=== PATIENT | female | born 1975 | race Caucasian/White ===

== ENCOUNTER → 2024-10-01 | Outpatient (CLI) | payer MEDICAID, SELFPAY ==
--- NOTE | 2024-10-01 | XR_ITS ---
Examination: Bilateral knees 2 views Right lateral knee left lateral knee 2 views Bilateral axial knees single view TECHNIQUE: Bilateral AP knees standing single view, bilateral PA knees standing single view flexion Standing right lateral knee left lateral knee 2 views Bilateral axial knees single view total 5 views Exam date and time: 22,025 1205 hours INDICATIONS: Bilateral knee pain several years. FINDINGS: Moderate osteopenia Moderate narrowing medial joint spaces Moderate narrowing patellofemoral joints No fractures IMPRESSION: Moderate narrowing medial joint spaces Moderate narrowing patellofemoral joints
== END | disposition home or self-care (01) ==
LOC: CDIM 11:29
PROVIDERS: PCP Student in an Organized Health Care Education/Training Program; Referring Provider Orthopaedic Surgery Adult Reconstructive Orthopaedic Surgery; Visit Provider Orthopaedic Surgery Adult Reconstructive Orthopaedic Surgery
DX: M25.862 Other specified joint disorders, left knee (principal); M25.861 Other specified joint disorders, right knee
CPT/HCPCS: 73564

== ENCOUNTER 2024-11-02 10:41 | Outpatient (AMB) | payer MEDICAID, SELFPAY ==
[2024-11-02 11:00] VITALS: BP 146/95; PULSE 68; RESP 18; TEMP 36.6; O2SAT 97; BMI 31.2
--- NOTE | 2024-11-02 11:00 | PD.ORTHCLVIS ---
Vital signs 11/02/24 11:00 Height 1.7 m Height Method Stated Weight 90.35 kg Weight Measurement Method Standing Scale BMI 31.2 BP 146/95 H Blood Pressure Source Automatic Cuff Blood Pressure Location Left Upper Arm Position Sitting Respiration 18 Pulse 68 Pulse Source Monitor Temp 97.8 F Temp Source Temporal Artery Scan Pulse Oximetry (%) 97 Oxygen Delivery Method Room Air Med/Allergies Allergies & Medications Allergies diphenhydramine (From Benadryl) Allergy (Verified 11/02/24 11:01) erythromycin base Allergy (Verified 11/02/24 11:01) gabapentin Allergy (Verified 11/02/24 11:01) Medication Reconciliation No Known Home Medications 11/25/23 [History Confirmed 11/02/24] Exam Exam Patient is in no acute distress and is cooperative with the examination today. Breathing is nonlabored. In no respiratory distress. Patient has no paraspinal tenderness. Spinal deformity cannot be appreciated. The gait of the patient is nonantalgic Bilateral extremities were evaluated and demonstrates sensation intact to light touch. Palpable pedal pulses are present. No significant edema is present. Bilateral knees were examined and the patient has full strength and range of motion.. The left hip was examined. Patient was able to flex to 90 degrees, adduct to 30 degrees, abduct to 40 degrees, internally rotate to 20 degrees, and externally rotate to 20 degrees. Patient has a negative logroll. Stinchfield is negative. The patient is nontender diffusely to touch. The right hip was examined. Patient was able to flex to 90 degrees, adduct to 30 degrees, abduct to 40 degrees, internally rotate to 20 degrees, and externally rotate to 20 degrees. Patient has a negative logroll. The stinchfield is negative. She is tender to palpation over the greater trochanter Right knee is tender to palpation medially as well as the left knee. Range of motion 0 to 100 degrees. She is tender palpation medially. Shoulder range of motion is full. There is impingement and a negative Neer sign bilaterally. 5 out of 5 supraspinatus strength Assessment and Plan Problem List (1) Shoulder pain: Status: Acute Plan: Patient is a 48-year-old female with right shoulder pain. She has done well with conservative treatment For her trochanteric bursitis. She has done well with subacromial injections and would like bilateral ones today. It has been over a year since I last saw her A 21-gauge needle was inserted into the subacromial space through a posterior portal bilaterally. A sterile prep was applied before insertion needle. 5 cc of 1% lidocaine and 1 cc of Kenalog was inserted to each shoulder without resistance. The patient tolerated procedure well (2) Bilateral primary osteoarthritis of knee: Status: Acute Plan: Patient has mild arthritis of her knees and has trochanteric bursitis. She would like to come back for bilateral trochanteric bursitis injections as well (3) Trochanteric bursitis, right hip: Status: Acute Office Procedures GNS Level of Care Nursing/Assessment Patient Status: Established Patient Nursing Assessment/Reassesment: Medication Reconciliation, Update PMH in EMR and Vital Signs Coordination of Care: Complex Care and Chronic Disease 1-5, Consent,records obtained, informed consent, Education Simp Pt/Fam, Results/Orders obtained and Staff clarify orders Established Patient Charge Established Patient Point Assignment: 90 Established Patient Point Charge: EP Level 3 (80-115) Surgical Proc/IM SQ injection Major Surgical Procedure: Yes (SHOULDER INJECTIONS ) Medication Given Medication Given Medication Given: Yes Documented Dose Given: 8 Route: Infiitration Medication Given Medication Given Medication Given: Yes Documented Dose Given: 2 Route: Infiitration Office Meds Xylocaine 10 mg/mL (1 %) injection solution Performing Provider: Ervin Hernandez MD Performing Location: [facility] Administered by: Ervin Hernandez MD on 11/02/24 11:14 Dose Route Admin Location Dispensed Lot Number Expiration Date [facility] Track Car Operator 40 mL Infiltration 40 mL [id number] 12/06/27 44074-303-98 [facility] triamcinolone acetonide 40 mg/mL suspension for injection Performing Provider: Ervin Hernandez MD Performing Location: [facility] Administered by: Ervin Hernandez MD on 11/02/24 11:14 Dose Route Admin Location Dispensed Lot Number Expiration Date [facility] Track Car Operator 80 mg intra-articular 2 mL [id number] 06/06/26 5758-6040-94 MICHAEL PARENTERAL MA Intake Visit Data Collection New Patient or Established: Established Patient (seen at [facility] within 3 years) Reason for Visit:: 1 YR FU BILAT HIP PAIN/BILAT KNEE XRAY RESULT Seen by Clinical Staff ONLY (RN/MA): No Circulation Clerk Required: No PCP or OBGYN visit in last 3 months: Yes Hx Now: No Do You Feel Safe at Home: Yes Authorities Contacted: N/A Questionairres Past Medical History Past Medical History Have you ever been diagnosed with any of the following: Respiratory Problems Smoking: Yes Smoking Cessation Counseling: Yes Smoking Exposure: No Tobacco Use: Yes Subjective Visit Visit for: follow up visit, hip (BILAT HIP PAIN ) and knee (BILAT KNEE PAIN ) Immunization / Flu Flu Vaccine in the Last 12 Months: No Flu Vaccine Exclusion Criteria: Refused by Patient History of Present Illness Chief complaint: bilateral shoulder pain Patient has a history of subacromial bursitis as well as trochanteric bursitis. She would like to get injections of her shoulder today of both as she is having significant shoulder pain and the injections are the only thing that is working. I last saw her a year ago and she reports that it has been working for this long Personal History Red flag PMH: none Pain Pain level (0-10): 7 Pain duration: 3 MONTHS Pain location: groin and anterior Pain quality: aching, burning and tingling Pain timing: increases with activity Associated signs & symptoms: none Ambulatory data Ambulatory device: none Walking distance (blocks): 0 Walking distance (minutes): 1 Treatments Number of previous injections: 5 (HIP INECTIONS ) Improvement with previous injections: Yes Number of Physical Therapy sessions: 0 Improvement with NSAIDS: n/a Review of Systems Review of Systems: All systems negative unless otherwise noted in HPI.
== END 2024-11-02 11:24 | disposition home or self-care (01) ==
LOC: HODSRG 10:41
PROVIDERS: PCP Student in an Organized Health Care Education/Training Program; Referring Provider Student in an Organized Health Care Education/Training Program; Supervising Provider Orthopaedic Surgery Adult Reconstructive Orthopaedic Surgery; Visit Provider Orthopaedic Surgery Adult Reconstructive Orthopaedic Surgery
DX: M25.511 Pain in right shoulder (principal); M17.0 Bilateral primary osteoarthritis of knee; M70.61 Trochanteric bursitis, right hip
CPT/HCPCS: 20610; 99213; J3301; J3490; G0463

== ENCOUNTER 2024-11-23 13:00 | Outpatient (AMB) | payer MEDICAID, SELFPAY ==
[2024-11-23 13:21] VITALS: BP 143/88; PULSE 77; RESP 18; TEMP 36.6; O2SAT 94; BMI 30.2
--- NOTE | 2024-11-23 13:21 | PD.ORTHCLVIS ---
Vital signs 11/23/24 13:21 Height 1.7 m Height Method Stated Weight 87.203 kg Weight Measurement Method Standing Scale BMI 30.2 BP 143/88 H Blood Pressure Source Automatic Cuff Blood Pressure Location Right Upper Arm Position Sitting Respiration 18 Pulse 77 Pulse Source Monitor Temp 97.8 F Temp Source Temporal Artery Scan Pulse Oximetry (%) 94 L Oxygen Delivery Method Room Air Med/Allergies Allergies & Medications Allergies diphenhydramine (From Benadryl) Allergy (Verified 11/23/24 13:22) erythromycin base Allergy (Verified 11/23/24 13:22) gabapentin Allergy (Verified 11/23/24 13:22) Medication Reconciliation No Known Home Medications 11/25/23 [History Confirmed 11/23/24] Exam Exam Patient is in no acute distress and is cooperative with the examination today. Breathing is nonlabored. In no respiratory distress. Patient has no paraspinal tenderness. Spinal deformity cannot be appreciated. The gait of the patient is nonantalgic Bilateral extremities were evaluated and demonstrates sensation intact to light touch. Palpable pedal pulses are present. No significant edema is present. Bilateral knees were examined and the patient has full strength and range of motion.. The left hip was examined. Patient was able to flex to 90 degrees, adduct to 30 degrees, abduct to 40 degrees, internally rotate to 20 degrees, and externally rotate to 20 degrees. Patient has a negative logroll. Stinchfield is negative. The patient is nontender diffusely to touch. The right hip was examined. Patient was able to flex to 90 degrees, adduct to 30 degrees, abduct to 40 degrees, internally rotate to 20 degrees, and externally rotate to 20 degrees. Patient has a negative logroll. The stinchfield is negative. She is tender to palpation over the greater trochanter Right knee is tender to palpation medially as well as the left knee. Range of motion 0 to 100 degrees. She is tender palpation medially. Shoulder range of motion is full. There is impingement and a negative Neer sign bilaterally. 5 out of 5 supraspinatus strength Assessment and Plan Problem List (1) Shoulder pain: Status: Acute Plan: Patient is a 48-year-old female with right shoulder pain. She has done well with conservative treatment For her trochanteric bursitis. She would like a right hip bursa as well as a right knee cortisone injection today (2) Bilateral primary osteoarthritis of knee: Status: Acute Plan: Recommend knee cortisone injection as patient would like to proceed with conservative treatment at this time. The risks and benefits of the procedure were reviewed with the patient and patient gave verbal consent to continue with the procedure. Procedure: performed by Dr. Hernandez Using sterile technique the Right knee was thoroughly prepped with alcohol, and approximately 1 cc of Kenalog 40 mg/mL and 4 cc of 1% lidocaine was injected without resistance into the medial tibial femoral joint space. The patient tolerated the procedure. (3) Trochanteric bursitis, right hip: Status: Acute Plan: Recommend hip bursa cortisone injection as patient would like to proceed with conservative treatment at this time. The risks and benefits of the procedure were reviewed with the patient and patient gave verbal consent to continue with the procedure. Procedure: performed by Dr. Hernandez Using sterile technique the right hip bursa was thoroughly prepped with alcohol prep, and approximately 1 cc of Kenalog 40 mg/mL and 4 cc of 1% Lidocaine was injected without resistance. The patient tolerated the procedure well. Office Procedures GNS Level of Care Nursing/Assessment Patient Status: Established Patient Nursing Assessment/Reassesment: Medication Reconciliation, Update PMH in EMR and Vital Signs Coordination of Care: Complex Care and Chronic Disease 1-5, Consent,records obtained, informed consent, Education Simp Pt/Fam, Results/Orders obtained and Staff clarify orders Established Patient Charge Established Patient Point Assignment: 90 Established Patient Point Charge: EP Level 3 (80-115) Medication Given Medication Given Medication Given: Yes Documented Dose Given: 8 Route: Infiitration Medication Given Medication Given Medication Given: Yes Documented Dose Given: 2 Route: Infiitration Office Meds Xylocaine 10 mg/mL (1 %) injection solution Performing Provider: Ervin Hernandez MD Performing Location: [facility] Administered by: Ervin Hernandez MD on 11/23/24 13:39 Dose Route Admin Location Dispensed Lot Number Expiration Date [facility] [employer] Equipment Setter 40 mL Infiltration 40 mL [id number] 04/05/28 52203-841-19 [facility] triamcinolone acetonide 40 mg/mL suspension for injection Performing Provider: Ervin Hernandez MD Performing Location: [facility] Administered by: Ervin Hernandez MD on 11/23/24 13:39 Dose Route Admin Location Dispensed Lot Number Expiration Date [facility] [employer] Equipment Setter 80 mg intra-articular 2 mL [id number] 07/05/26 1294-1031-42 TEVA PARENTERAL MA Intake Visit Data Collection New Patient or Established: Established Patient (seen at [facility] within 3 years) Reason for Visit:: RIGHT HIP/RIGHT KNEE PAIN Seen by Clinical Staff ONLY (RN/MA): No Facilities Specialist Required: No PCP or OBGYN visit in last 3 months: Yes Hx Now: No Do You Feel Safe at Home: Yes Authorities Contacted: N/A Questionairres Past Medical History Past Medical History Have you ever been diagnosed with any of the following: Respiratory Problems Smoking: Yes Smoking Cessation Counseling: Yes Smoking Exposure: No Tobacco Use: Yes Subjective Visit Visit for: follow up visit, hip (RIGHT HIP ) and knee (RIGHT KNEE ) Immunization / Flu Flu Vaccine in the Last 12 Months: No Flu Vaccine Exclusion Criteria: Refused by Patient History of Present Illness Chief complaint: bilateral shoulder pain Patient has a history of subacromial bursitis as well as trochanteric bursitis. She did well for shoulder injections. She would like a hip bursa injection today as well as a right knee injection today. Personal History Red flag PMH: none Pain Pain level (0-10): 7 Pain duration: SEVERAL MONTHS Pain location: groin and anterior Pain quality: aching, burning and tingling Pain timing: night and increases with activity Associated signs & symptoms: none Ambulatory data Ambulatory device: none Walking distance (blocks): 0 Walking distance (minutes): 5 Treatments Number of previous injections: 2 Improvement with previous injections: Yes Number of Physical Therapy sessions: 4 Improvement with PT: No Improvement with NSAIDS: n/a Review of Systems Review of Systems: All systems negative unless otherwise noted in HPI.
== END 2024-11-23 13:38 | disposition home or self-care (01) ==
LOC: HODSRG 13:00
PROVIDERS: PCP Student in an Organized Health Care Education/Training Program; Referring Provider Student in an Organized Health Care Education/Training Program; Supervising Provider Orthopaedic Surgery Adult Reconstructive Orthopaedic Surgery; Visit Provider Orthopaedic Surgery Adult Reconstructive Orthopaedic Surgery
DX: M17.0 Bilateral primary osteoarthritis of knee (principal); M70.61 Trochanteric bursitis, right hip; M25.511 Pain in right shoulder
CPT/HCPCS: 20610; 99213; J3301; J3490; G0463

== ENCOUNTER 2025-04-01 09:03 | Outpatient (AMB) | payer MEDICAID, SELFPAY ==
--- NOTE | 2025-04-01 09:33 | PD.ORTHCLVIS ---
Vital signs 04/01/25 09:40 Height 1.7 m Height Method Stated Weight 86.806 kg Weight Measurement Method Standing Scale BMI 30.0 BP 143/89 H Blood Pressure Source Automatic Cuff Blood Pressure Location Right Upper Arm Position Sitting Respiration 16 Pulse 69 Pulse Source Monitor Temp 96.7 F L Temp Source Temporal Artery Scan Pulse Oximetry (%) 97 Oxygen Delivery Method Room Air Med/Allergies Allergies & Medications Allergies diphenhydramine (From Benadryl) Allergy (Verified 04/01/25 09:40) erythromycin base Allergy (Verified 04/01/25 09:40) gabapentin Allergy (Verified 04/01/25 09:40) Medication Reconciliation No Known Home Medications 11/25/23 [History Confirmed 04/01/25] Exam Exam Patient is in no acute distress and is cooperative with the examination today. Breathing is nonlabored. In no respiratory distress. Patient has no paraspinal tenderness. Spinal deformity cannot be appreciated. The gait of the patient is nonantalgic Bilateral extremities were evaluated and demonstrates sensation intact to light touch. Palpable pedal pulses are present. No significant edema is present. Bilateral knees were examined and the patient has full strength and range of motion.. The left hip was examined. Patient was able to flex to 90 degrees, adduct to 30 degrees, abduct to 40 degrees, internally rotate to 20 degrees, and externally rotate to 20 degrees. Patient has a negative logroll. Stinchfield is negative. The patient is nontender diffusely to touch. The right hip was examined. Patient was able to flex to 90 degrees, adduct to 30 degrees, abduct to 40 degrees, internally rotate to 20 degrees, and externally rotate to 20 degrees. Patient has a negative logroll. The stinchfield is negative. She is tender to palpation over the greater trochanter Right knee is tender to palpation medially as well as the left knee. Range of motion 0 to 100 degrees. She is tender palpation medially. Shoulder range of motion is full. There is impingement and a negative Neer sign bilaterally. 5 out of 5 supraspinatus strength Assessment and Plan Problem List (1) Shoulder pain: Status: Acute Plan: Patient is a 49-year-old female with bilateral shoulder pain bilateral hip bursitis and bilateral knee pain. She is very tender in these spots. I have a very high suspicion for fibromyalgia as she has pain in several locations that is very common with fibromyalgia. I do think she would benefit from a pain management doctor as the majority of her problems are nonsurgical. Her arthritis is mild as well as her subacromial bursitis and hip bursitis. She reports that the bilateral shoulders are the joints that are bothering her the most today and she would like these injected Recommend bilateral subacromial cortisone injection as patient would like to proceed with conservative treatment at this time. The risks and benefits of the procedure were reviewed with the patient and patient gave verbal consent to continue with the procedure. Procedure: performed by Dr. Hernandez Using sterile technique the bilateral was thoroughly prepped with alcohol, and approximately 1 cc of Kenalog 40 mg/mL and 4 cc of 1% lidocaine was injected without resistance into each shoulder. The patient tolerated the procedure. (2) Bilateral primary osteoarthritis of knee: Status: Acute (3) Trochanteric bursitis, right hip: Status: Acute Office Procedures GNS Level of Care Nursing/Assessment Patient Status: Established Patient Nursing Assessment/Reassesment: Medication Reconciliation, Update PMH in EMR and Vital Signs Coordination of Care: Complex Care and Chronic Disease 1-5, Education Complex Pt/Fam, Consent,records obtained, informed consent, Results/Orders obtained and Staff clarify orders Established Patient Charge Established Patient Point Assignment: 95 Established Patient Point Charge: EP Level 3 (80-115) Surgical Proc/IM SQ injection Minor Surgical Procedure: Yes (SHOULDER INJECTION ) Medication Given Medication Given Medication Given: Yes Documented Dose Given: 1 Route: Infiitration Medication Given Medication Given Medication Given: Yes Documented Dose Given: 1 Route: Infiitration Medication Given Medication Given Medication Given: Yes Documented Dose Given: 4 Route: Infiitration Medication Given Medication Given Medication Given: Yes Documented Dose Given: 4 Route: Infiitration Office Meds methylprednisolone acetate 80 mg/mL suspension for injection Performing Provider: Ervin Hernandez MD Performing Location: [facility] Administered by: Ervin Hernandez MD on 04/01/25 09:46 Dose Route Admin Location Dispensed Lot Number Expiration Date Package NDC NDC Dispatch Lead 80 mg intra-articular SHOULDER 1 mL [id number] 12/04/26 [address]-8 [id number] [employer] methylprednisolone acetate 80 mg/mL suspension for injection Performing Provider: Ervin Hernandez MD Performing Location: [facility] Administered by: Ervin Hernandez MD on 04/01/25 09:46 Dose Route Admin Location Dispensed Lot Number Expiration Date Package [facility] NDC Dispatch Lead 80 mg intra-articular SHOULDER 1 mL [id number] 06/05/26 [address]-4 [id number] [employer] ropivacaine (PF) 2 mg/mL (0.2 %) injection solution Performing Provider: Ervin Hernandez MD Performing Location: [facility] Administered by: Ervin Hernandez MD on 04/01/25 09:46 Dose Route Admin Location Dispensed Lot Number Expiration Date Package NDC NDC Dispatch Lead 20 mL Infiltration SHOULDER 20 mL [id number] 08/06/27 66836-955-87 [id number] [facility] ropivacaine (PF) 2 mg/mL (0.2 %) injection solution Performing Provider: Ervin Hernandez MD Performing Location: 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: No PCP or OBGYN visit in last 3 months: Yes Hx Now: No Do You Feel Safe at Home: Yes Authorities Contacted: N/A Questionairres Past Medical History Past Medical History Have you ever been diagnosed with any of the following: Respiratory Problems Smoking: Yes Smoking Cessation Counseling: Yes Smoking Exposure: No Tobacco Use: Yes Subjective Visit Visit for: follow up visit, hip (RIGHT HIP ) and knee (RIGHT KNEE ) Immunization / Flu Flu Vaccine in the Last 12 Months: No Flu Vaccine Exclusion Criteria: Refused by Patient History of Present Illness Chief complaint: bilateral shoulder pain Patient has a history of subacromial bursitis as well as trochanteric bursitis. She did well for shoulder injections. She has done well with shoulder injections for subacromial bursitis. She reports that the pain on the lateral aspect of her hip has returned. She would like new ones today. She reports that the majority of her pain started after her stroke and we are wondering how much of the pain is related to that. I definitely would recommend a pain management consultation at this point Personal History Red flag PMH: none Pain Pain level (0-10): 7 Pain duration: SEVERAL MONTHS Pain location: groin and anterior Pain quality: aching, burning and tingling Pain timing: night and increases with activity Associated signs & symptoms: none Ambulatory data Ambulatory device: none Walking distance (blocks): 0 Walking distance (minutes): 5 Treatments Number of previous injections: 2 Improvement with previous injections: Yes Number of Physical Therapy sessions: 4 Improvement with PT: No Improvement with NSAIDS: n/a Review of Systems Review of Systems: All systems negative unless otherwise noted in HPI.
[2025-04-01 09:40] VITALS: BP 143/89; PULSE 69; RESP 16; TEMP 35.9; O2SAT 97
== END 2025-04-01 09:50 | disposition home or self-care (01) ==
LOC: HODSRG 09:03
PROVIDERS: PCP Student in an Organized Health Care Education/Training Program; Referring Provider Student in an Organized Health Care Education/Training Program; Supervising Provider Orthopaedic Surgery Adult Reconstructive Orthopaedic Surgery; Visit Provider Orthopaedic Surgery Adult Reconstructive Orthopaedic Surgery
DX: M25.512 Pain in left shoulder (principal); M25.511 Pain in right shoulder; M17.0 Bilateral primary osteoarthritis of knee; M70.61 Trochanteric bursitis, right hip; M25.562 Pain in left knee; M25.561 Pain in right knee; Z86.73 Personal history of transient ischemic attack (TIA), and cerebral infarction without residual deficits
CPT/HCPCS: 20610; 99213; J1010; J2795; G0463

== ENCOUNTER 2025-06-23 02:20 | Emergency (ER) | payer MEDICAID, SELFPAY ==
[2025-06-23 02:22] VITALS: BMI 28.8
--- NOTE | 2025-06-23 02:24 | EKG_ITS ---
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1975 Requested By: Sherman Chauhan Order Number: [id number] Reading MD: Sherman Chauhan Measurements Intervals [place] Rate: 79 P: 39 HI: 147 QRS: -29 QRSD: 90 T: 26 QT: 375 QTc: 430 Interpretive Statements SINUS RHYTHM WITH OCCASIONAL SUPRAVENTRICULAR PREMATURE COMPLEXES POSSIBLE LEFT ATRIAL ENLARGEMENT [-0.1mV P-WAVE IN V1/V2] LOW QRS VOLTAGE IN PRECORDIAL LEADS [QRS DEFLECTION < 1.0 mV IN CHEST LEADS] POSSIBLE ANTERIOR MYOCARDIAL INFARCTION , PROBABLY OLD [30 ms Q WAVE IN V3/V4, OR R < 0.2 mV IN V4] Compared to ECG 09/17/2023 03:04:34 No significant changes /store/S0/[id number]/ecg/[id number].pdf
[2025-06-23 02:37] VITALS: BP 191/119; PULSE 75; RESP 18; TEMP 36.4; O2SAT 98
--- NOTE | 2025-06-23 02:49 | PD.EDRME ---
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 Patient states she has anxiety and this doesn't feel like it. Chief Complaint: Arrhythmia/Palpitations Vital signs: Vital Signs Temperature 97.5 F 06/23/25 02:37 Pulse Rate 75 06/23/25 02:37 Respiratory Rate 18 06/23/25 02:37 Blood Pressure 191/119 H 06/23/25 02:37 Pulse Oximetry (%) 98 06/23/25 02:37 Oxygen Delivery Method Room Air 06/23/25 02:37 Exam: Clear lungs, but SOB. Clinical Impression: anxiety vs electrolyte abnormality vs anemia vs PE vs CAP
--- NOTE | 2025-06-23 02:51 | XR_ITS ---
EXAMINATION: PA chest single view TECHNIQUE: Upright PA chest single view Date and time: June 23, 2025, 0255 hours INDICATIONS: Chest pain today. FINDINGS: Normal heart size Lungs are clear. Osseous structures are intact IMPRESSION: No active disease
[2025-06-23 03:22] LABS: Basophils # (Auto) 0.0 Thou/mm3 (0.0-0.2); Basophils % (Auto) 0 % (0-2.5); Eosinophils # (Auto) 0.2 Thou/mm3 (0.0-0.5); Eosinophils % (Auto) 2 % (0-10); Hematocrit 42.1 % (36.0-46.0); Hemoglobin 15.1 g/dL (12.0-16.0); Immature Granulocytes Auto 0.01 Thou/mm3 (0.00-0.00); Lymphocytes # (Auto) 2.4 Thou/mm3 (1.0-4.8); Lymphocytes % (Auto) 30 % (10-50); Mean Corpuscular HGB Conc 35.9 g/dl (31.0-37.0); Mean Corpuscular Hemoglobin 29.8 pg (25.0-35.0); Mean Corpuscular Volume 83 fL (80-100); Monocytes # (Auto) 0.2 Thou/mm3 (0.0-0.8); Monocytes % (Auto) 3 % (0-12); Neutrophils # (Auto) 5.0 Thou/mm3 (1.8-7.7); Neutrophils % (Auto) 64 % (37-80); Nucleated Red Blood Cell # 0.00 Thou/mm3 (0.00-0.00); Nucleated Red Blood Cell % 0 /100 WBC (0); Platelet Count 284 Thou/mm3 (140-440); RDW Standard Deviation 36.9 fL (36.4-46.3); Red Blood Count 5.07 Miln/mm3 (4.00-5.20); White Blood Count 7.8 Thou/mm3 (3.6-11.0)
--- NOTE | 2025-06-23 03:25 | EDNOTE_ITS ---
ED Arrhythmia Palp. 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 Patient states she has anxiety and this doesn't feel like it. DR. HAYS MAIN ED EVALUATION: 50 y/o female with Hx of CVA, Myocardial Bridge, Hypercholesterolemia, and HTN presents to ED c/o worsening internittent palpitations x 1 month. Patient takes Amlodipine in the morning and Lisinopril at night for blood pressure. Patient also takes ASA due to Hx of CVA. Admits to tobacco use and FHx of heart disease. Denies IV drug use. Denies prolonged travel and LE swelling. Patient has not been on Metoprolol or Atenalol. Patient underwent an angiogram 1 year ago and last saw her agricultural produce commission agent, Dr. Yarbrough, 2 months ago. Patient reports allergies to Benadryl, Azithromycin, Gabapentin, and Theophyline. Exam: Clear lungs, but SOB. Impression: anxiety vs electrolyte abnormality vs anemia vs PE vs CAP Related Data Home Medications ?Medication ?Instructions ?Recorded ?Confirmed No Known Home Medications 11/25/2303/08 Allergies Allergy/AdvReac Type Severity Reaction Status Date / Time diphenhydramine (From Allergy Verified 06/23/25 02:22 Benadryl) erythromycin base Allergy Verified 06/23/25 02:22 gabapentin Allergy Verified 06/23/25 02:22 theophylline (From Tomi-Dur) Allergy Vomiting Verified 06/23/25 02:22 Review of Systems Review of Systems Systems Reviewed: All systems reviewed, normal except as documented Past Medical History Past Medical History NEUROLOGIC: Positive Cerebrovascular Accident CARDIAC: Positive Cardiac Disorders (Myocardial Bridge), Hypercholesterolemia, Congenital Heart Disease and Hypertension RESPIRATORY: Positive Smoking, Smoking Cessation Counseling and Tobacco Use Surgical History SURGICAL: Positive Angiogram Social History SMOKING STATUS: Current every day smoker ED Exam Narrative Physical exam: GEN. APPEARANCE: The patient is alert awake oriented X-3 in no distress, lying down comfortably, does not look ill/toxic. Patient has good eye contact. Patient is cooperative. VITALS: All vitals were reviewed and the pulse ox is 98% on room air which is normal according to my interpretation. HEENT: Normocephalic, atraumatic. Pupils are equal and reactive. Oral mucosa is moist. Patent Nares NECK: Supple, nontender, no thyromegaly, no meningismus, no JVD CHEST: Symmetrical, atraumatic, and with equal expansion , Nontender on palpation no deformity and no crepitus. CARDIOVASCULAR: Heart regular rhythm no murmur or gallop rub or extra beats. LUNGS: Clear to auscultation bilaterally with symmetrical chest rise. No laboring tachypnea or wheezing. No intercostal subcostal retraction. No rales and no rhonchi. ABDOMEN: Soft, flat, nontender to palpation, no guarding or rebound tenderness. There are no abnormal masses palpated. Active and normal bowel sounds. EXTREMITIES: Nontender. No edema. No cyanosis. Patient is able to move all 4 extremities well, with full ROM and good CSM. SKIN: Warm and dry, no jaundice or rashes noted. Course Quality Measures none Orders Category Date Time Status EKG (ED ONLY) *Do not use* NOW Care 06/23/25 02:24 Completed EKG (ED Only) Stat Exams 06/23/25 02:24 Draft XR chest 1V portable Stat Exams 06/23/25 02:51 Taken B-Type Natriuretic Peptide Stat Lab 06/23/25 02:54 Received CBC Stat Lab 06/23/25 02:54 Received Comprehensive Metabolic Panel Stat Lab 06/23/25 02:54 Received Magnesium Stat Lab 06/23/25 02:54 Received Troponin I Stat Lab 06/23/25 02:54 Received Vital Signs Vital signs: Vital Signs Temperature 97.5 F 06/23/25 02:37 Pulse Rate 75 06/23/25 02:37 Respiratory Rate 18 06/23/25 02:37 Blood Pressure 191/119 H 06/23/25 02:37 Pulse Oximetry (%) 98 06/23/25 02:37 Oxygen Delivery Method Room Air 06/23/25 02:37 Arrhythmia/Palpitations MDM Narrative MDM Narrative:: Scribe Attestation: I, Kailyn Riggs, am scribing for and in the presence of Dr. Hays. Provider Notation: Although this document has been carefully reviewed, there may still be some phonetic and other typographical errors. These errors are purely grammatical due to imperfections in the software program and should not be construed in any way to compromise the substance of the patient's medical care during this visit. 50F with history of CVA/TIA (on aspirin) no residual deficits, hypertension, palpitations, and recent diagnosis of a myocardial bridge and a extra heart vessel per cardiac angiogram, that presents to the emergency department with increased frequency of palpitations feeling lightheaded and weak. Vital signs and exam as listed. Patient did present with blood pressure greater than 190. Concern for ACS arrhythmia electrolyte abnormality thyroid dysfunction dehydration among others. Ordered labs EKG chest x-ray offered medication for symptom relief. I reviewed patient's records from outside facility [facility]. She follows with Dr. Olsen Said. She last saw him and March of this year. His recommendations were for her to continue Coreg 3.125 twice daily, Norvasc 2.5 mg daily, lisinopril 5 mg daily as well as her medications for hypertriglyceridemia and hyperlipidemia. Patient had a left heart cath in March 2024 that shows ramus intermedius small 30 to 40%. 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 In August had a Zio patch that showed a short run of V. tach as well as short runs of SVT. The patient hydralazine and labetalol however at this time would like to hold off as hydralazine has a risk of palpitations and she would like to hold off on labetalol given that her heart rates is in the low 60s to 70s and her agricultural produce commission agent told her that to be cautious of medications that can lower her heart rate. I offered her home medications however she states that she is not due for her Coreg until late in the morning would like to hold off, she takes her lisinopril in the evening. She is open to taking her amlodipine at this time. Like to see how her heart rate is doing after IV fluids. Labs without any acute hematologic abnormality. Patient with sodium 146 chloride 109, concern that patient may be mildly fluid down provided patient with fluids. Troponin not elevated patient is non, thyroid studies unremarkable. EKG performed today at 230 3 in the morning notable for heart rate 79, normal intervals, patient with occasional PVCs, not a cardiac alert. Interpreted by me. Chest x-ray without any acute cardiopulmonary abnormalities. 4:29a reevaluated the patient, the patient continues to be hemodynamically stable not distressed, not feeling the intensity of palpitations that she was feeling before. Patient states that she has an extensive history of palpitations that she has been following very closely with her agricultural produce commission agent about it. I let her know that it is important that she make an appointment with her agricultural produce commission agent again called him later today and discuss if any medications need to be adjusted or whether she should be referred to an broodmare barn groom for further workup and management of her arrhythmia. Patient in agreement. Also advised her that it is important that she take her blood blood pressure medications as prescribed, and that she seek resources to help her quit smoking as that will lead to furthering cardiovascular disease. EKG performed today at 452, notable for sinus rhythm, heart 65, normal intervals, nonspecific T wave changes, not a cardiac alert. Interpreted by me. EKG performed today at 505 in the morning, notable for sinus rhythm, heart rate 66, normal intervals, nonspecific T wave changes, not a cardiac alert. interpreted by me. Patient data External records reviewed:: [facility] previous records (Reviewed prior ED records from 09/17/23. Patient was seen for Shortness of breath.) Clinical information provided by:: patient Social determinants that could affect healthcare access:: none Patient has the following chronic illnesses:: Cerebrovascular Accident, Myocardial Bridge, Hypercholesterolemia, Congenital Heart Disease, Hypertension How is presenting disease/condition affected by chronic disease/condition?: exacerbated by Evaluation data The following diagnostics were reviewed and interpreted by me:: lab results, radiology exam(s) and EKG tracing(s) ( EKG done at 02:33, 79 bpm, occasional PVCs, non-specific T-wave changes, not a cardiac alert. - Interpreted by Dr. Yamile Hays.) Lab and/or radiology exams considered but not ordered:: None Interpretation Summary: RADIOLOGY Chest X-Ray: Pending official radiology report. Medications / Prescriptions Medications or Prescriptions considered but not ordered:: None Medication administrations:: See above if any Consultations Consultation(s) initiated? (list below): No Diagnosis Differential diagnosis arrhythmia/palpitations: palpitations, anxiety, sinus tachycardia, artial fibrillation, ventricular premature beats, supraventricular tachycardia and ventricular tachycardia Most likely diagnosis given after review of the tests above:: Heart Palpitations, Hypertension Admission Indicated Admission indicated?: not indicated Explain why admission is indicated or not indicated:: Patient does not meet admission criteria. Admission Request Was there a request for admission?: No Disposition Plan Disposition Plan: Discharge Discharge Attestation Discharge Attestation: The patient and all family members were given an opportunity to ask questions and understood the discharge instructions. Discharge instructions specifically effects, indications for sooner follow up or return to the emergency department, and the expected course of current diagnosis. Patient condition: Stable Discharge Plan Plan Patient Disposition: HOME (Self Care) Prescriptions/Referrals Prescriptions/Med Rec: No Action lidocaine HCl [Xylocaine] 10 mg/mL (1 %) solution 20 ml Infiltration .x2 Qty: 20 0RF triamcinolone acetonide 40 mg/mL suspension 40 mg intra-articular .x2 Qty: 1 0RF No Known Home Medications Referrals: Carlos Chavez MD [Primary Care Provider] - In 1 week Problem List Clinical Impression: Heart palpitations, Hypertension Patient/Caregiver Discharge Instructions Education Materials: ED About Arrhythmias Additional Instructions: Your EKG showed occasional extra heartbeats however did not have evidence of other acute abnormalities. Your cardiac enzyme was normal, as well as your thyroid studies and your hematologic panel. Your metabolic panel showed evidence of slight dehydration, we gave you fluids in the emergency department today. Your chest x-ray was normal. It is very important that you follow-up with your agricultural produce commission agent tomorrow and discuss your worsening symptoms of increased palpitations. It is important that you discuss whether or not any medications need to be adjusted and whether he would benefit from a referral to see an broodmare barn groom. I highly recommend that you also seek resources for quitting smoking with your primary care doctor as this will continue to contribute to your worsening cardiovascular disease. Please hydrate well. Return to the emergency department mediately if you have any worsening symptoms or symptoms of concern. I also recommend that you log onto the patient portal for all facilities where you receive care so you can have access to the results of her workup regularly. Print Language: Bruneian Stand Alone Forms: Leona Award Info., Patient Portal Info Letter
[2025-06-23 03:29] VITALS: BP 196/77; PULSE 77; RESP 19; O2SAT 98
[2025-06-23 03:38] LABS: B-Type Natriuretic Peptide 50 pg/mL (0-100)
[2025-06-23 03:50] LABS: HCG,Qualitative Serum Negative
[2025-06-23 03:56] LABS: Alanine Aminotransferase 17 U/L (10-49); Albumin, Serum 4.4 gm/dL (3.5-5.0); Albumin/Globulin Ratio 1.8 (1.2-2.2); Alkaline Phosphatase 130 U/L (46-116); Anion Gap 10 (7-16); Aspartate Amino Transferase 18 U/L (0-34); BUN/Creatinine Ratio 14 Ratio (12-20); Bilirubin,Total 0.5 mg/dL (0.3-1.2); Blood Urea Nitrogen 13 mg/dL (9-23); Calcium 9.2 mg/dL (8.3-10.6); Calcium (Corrected) 9.2 mg/dL (8.5-10.1); Carbon Dioxide 26.8 mMol/L (20.0-31.0); Chloride 109 mMol/L (98-107); Creatinine (Component) 0.9 mg/dL (0.6-1.3); Estimated Creatinine Clearance 86.9 mL/min (>60); Free T4 (Free Thyroxine) 1.14 ng/dL (0.89-1.76); Globulin 2.4 gm/dL (2.3-3.5); Glucose 140 mg/dL (74-106); Magnesium 1.9 mg/dL (1.6-2.6); Osmolality,Calculated 292 (275-295); Potassium 3.8 mMol/L (3.4-5.1); Sodium 146 mMol/L (136-145); Thyroid Stimulating Hormone 1.05 uIU/mL (0.55-4.78); Total Protein 6.8 gm/dL (5.7-8.2); Troponin I < 0.020 ng/mL (0.0-0.045); eGFR > 60 See Note
[2025-06-23 03:58] VITALS: BP 195/107; PULSE 66; RESP 18; O2SAT 96
[2025-06-23] MEDS: RINGERS LACTATED 1000 ML 1,000 ML 999 ML IV (04:01)
[2025-06-23 04:41] VITALS: BP 172/106; PULSE 62
--- NOTE | 2025-06-23 04:56 | EKG_ITS ---
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: : [id number] Requested By: Yamile Goodman Order Number: [id number] Reading MD: Yamile Goodman Measurements Intervals Arthur Rate: 66 P: 42 TX: 161 QRS: -18 QRSD: 94 T: 48 QT: 345 QTc: 363 Interpretive Statements SINUS RHYTHM POSSIBLE LEFT ATRIAL ENLARGEMENT [-0.1mV P-WAVE IN V1/V2] LOW QRS VOLTAGE IN PRECORDIAL LEADS [QRS DEFLECTION < 1.0 mV IN CHEST LEADS] POSSIBLE RIGHT VENTRICULAR CONDUCTION DELAY [RSR (QR) IN V1/V2] POSSIBLE LEFT VENTRICULAR HYPERTROPHY [VOLTAGE CRITERIA PLUS LAE OR QRS WIDENING] POSSIBLE ANTERIOR MYOCARDIAL INFARCTION , PROBABLY OLD [30 ms Q WAVE IN V3/V4, OR R < 0.2 mV IN V4] Compared to ECG 06/23/2025 02:33:49 No significant changes /store/S0/[id number].pdf
[2025-06-23] MEDS: ACETAMINOPHEN 325 MG TABLET 650 MG PO (05:30)
[2025-06-23 05:58] VITALS: BP 172/100; PULSE 72; RESP 16; TEMP 36.8; O2SAT 98
== END 2025-06-23 06:00 | disposition home or self-care (01) ==
PROVIDERS: Physician Assistant; Emergency Provider Emergency Medicine; PCP Student in an Organized Health Care Education/Training Program
DX: I10 Essential (primary) hypertension (principal); R00.2 Palpitations; R07.9 Chest pain, unspecified; I49.1 Atrial premature depolarization; E78.00 Pure hypercholesterolemia, unspecified; F17.200 Nicotine dependence, unspecified, uncomplicated
CPT/HCPCS: 36415; 71045; 80053; 80307; 83735; 83880; 84439; 84443; 84484; 84703; 85025; 93005; 96360; 96361; 99284; J7120; A9270